=== PATIENT | female | born 1995 | race Caucasian/White ===

== ENCOUNTER → 2017-10-05 | Day surgery (SDC) | payer BC, OTHER ==
[~2017-10-05] MED LIST: APREPITANT 40 MG CAP ONE; BUPIVACAINE HCL PF 0.25% 30 ML VIAL ONE; CEFU125S PO; KETOROLAC TROMETHAMINE 30 MG/ML (IVP) VIAL IV PUSH ONE; MIDAZOLAM HCL 2 MG/2 ML VIAL ONE; ONDANSETRON HCL 4 MG/2 ML VIAL IV PUSH ONE; PROPOFOL 200 MG/20 ML AMP IV ONE; TRIAMCINOLONE ACETONIDE 40 MG/ML VIAL ONE; ceFAZolin 2 GM PREMIX 50 ML ONE
--- NOTE | 2017-10-05 21:13 | MP ---
cc: JESSICA CHAUDHARY DPM, JAIME E. M.D. ACKER, JAMES H. 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 PROCEDURES PERFORMED Right arthroscopic synovectomy with repair and microfracture of osteochondral lesion talar dome (OCD). SLAGGER Scrub TOURNIQUET TIME 74 minutes with a setting of 250 mmHg of the patient's right mid thigh. SPECIMEN None. ESTIMATED BLOOD LOSS Less than 30 ml COMPLICATIONS None DISPOSITION DC home once stable per same-day surgery criteria. JUSTIFICATION FOR PROCEDURE This is a pleasant 22-year-old female with a history of chronic ankle pain. MRI verified an osteochondral lesion which appeared to be stable. Conservative management had failed, NSAIDs, immobilization. The patient was seen and I initially counseled the patient on the possibility of arthroscopic synovectomy with microfracture of the lesion, it is under 1 cm and if the lesion is viable stable without any obvious excessive subchondral fluid she may get by without an osteochondral autologous transfer and a takedown medial malleolar osteotomy due to where the location was at the medial posterior medial aspect of the talus. I advised the patient that we will move forward with a simpler type of procedure and if there is failure we may need to move forward with a more aggressive type approach. PROCEDURE IN DETAIL Under mild sedation the patient is brought to the operating room, placed on the operative table in the supine position. Following the induction of general anesthesia the right lower extremity was then scrubbed, prepped and draped in the usual aseptic fashion. The foot was elevated, exsanguinated and previously placed midthigh tourniquet was inflated at 250 mmHg. Fluoroscopy was used at this time to see if we could not visualize the osteochondral lesion. It was very hard to see. There was a small dell on the cartilage that upon magnification but no obvious change, no deep cystic findings. At this time 20 mL of normal saline was injected in the medial aspect of the malleolus at the level of the medial ankle portal. Next, the patient was then positioned to plantar flexed and a distraction strap was then placed anchored to the bed and distracted the ankle joint making sure that it is well-padded not to bruise or provide too much tension on the dorsal neurovascular structures. An incision was made medial to the anterior tibialis tendon. Sharp and blunt dissection was carried down through adipose and the blunt obturator and cannula/camera was then introduced gaining entrance into the tibiotalar joint. At this time normal saline gravity was opened up, an incision was then made just lateral to the extensor digitorum longus tendon being careful not to violate the superficial peroneal branch coursing from the ankle. Sharp and blunt dissection was carried down through adipose. A stab incision was then made with a blunt obturator allowing access of the ArthroCare wand. Immediately upon going into the ankle joint there was noted to be evidence of synovial villi, meniscoid bands and evidence of chronic ankle synovitis. ArthroCare wand was then utilized to remove chronic inflammatory findings being careful not to over heat the ankle joint utilizing the ambient temperature wand. Once the chronic synovitis was removed and the talar dome was easily seen, the lateral talar dome, the central talar dome, all appeared to be free from any osteochondral defects, loose body or deep posterior, medial or lateral meniscoid bands. Upon using a blunt probe at the medial aspect with the foot plantar flexed of the talar dome, there was noted to be an unstable cartilage fragment. This was then easily freed from its attachment to subchondral bone. Utilizing the ArthroCare wand and biter devices the unstable medial talar dome cartilage was removed down to viable subchondral bone. There was no obvious deep cystic change noted. The osteochondral lesion appeared to be under 1 cm. Once making sure all the corners and the edge of the osteochondral lesion were well adhered to the subchondral bone, antegrade drilling took place utilizing a K-wire and microfracture technique switching portals from medial to lateral, lateral to medial. There was no need for a retrograde drilling or trans medial malleolar drilling. It was easily accessible with the foot in a plantar flexed position. Once the microfracture and the subchondral drilling took place, any loose viable fragments were then spot welded if you will utilizing ArthroCare wand. The ankle joint was examined medial, central, lateral and posterior talar dome and noted to be free from any loose bodies. The obturator and cannula and the ArthroCare wand were then removed. Deep dermal layer closure took place utilizing Vicryl. Skin was closed utilizing nylon. Approximately 10 mL of 0.25% Marcaine plain was injected at the anterior incisions and also within the ankle joint. Upon relieving the tourniquet there was a prompt hyperemic response to all digits without any obvious delayed capillary fill time. No excessive bleeding noted. A bulky bandage placed. The patient positioned within a controlled ankle motion boot at 90 degrees. The patient will ice, elevate. She is permitted readjusting of the Cam walking boot. However, she is heel transfer weightbear only. I will see the patient within 3-5 days. YRIS Leon/MARITZA /5:12 PM /8:49 PM KENDRA
== END | disposition home or self-care (01) ==
LOC: ESDC 13:32
PROVIDERS: ATTEND Podiatrist Foot & Ankle Surgery
DX: M65.871 Other synovitis and tenosynovitis, right ankle and foot (principal); M93.271 Osteochondritis dissecans, right ankle and joints of right foot
CPT/HCPCS: 01464; 29891; 73600; 76000; J0690; J1885; J2250; J2405; J3010; J8501; J3301